=== PATIENT | male | born 1980 | race African-American/Black ===

== ENCOUNTER 2017-08-21 18:13 | Emergency (ER) | payer SELFPAY ==
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
== END 2017-08-21 22:26 | disposition home or self-care (01) ==
LOC: ERS 18:13
DX: S46.912A Strain of unspecified muscle, fascia and tendon at shoulder and upper arm level, left arm, initial encounter (principal); S80.02XA Contusion of left knee, initial encounter; S80.01XA Contusion of right knee, initial encounter; I10 Essential (primary) hypertension; F17.210 Nicotine dependence, cigarettes, uncomplicated; V43.52XA Car driver injured in collision with other type car in traffic accident, initial encounter
CPT/HCPCS: 72100; 99406